=== PATIENT | male | born 1965 | race Two or more races ===

== ENCOUNTER 2018-06-06 19:23 | Emergency (ER) | payer MEDICAID ==
[~2018-06-06] VITALS: Ht 182.9 cm; Wt 82.0 kg
[2018-06-06] MEDS ORDERED: ASPIRIN 81MG TABLET PO ONE (20:45)
[2018-06-06 21:50] LABS: BASOPHILS % 0.7 % (0.0-2.0); EOSINOPHILS % 4.4 % (0.0-5.0); HEMATOCRIT. 41.1 % (42.0-52.0); HEMOGLOBIN. 13.8 g/dL (14.0-18.0); LYMPHOCYTES % 29.6 % (20.0-50.0); MEAN CORPUSCULAR HEMOGLOBIN 31.5 pg (28.0-32.0); MEAN CORPUSCULAR VOLUME 93.9 fL (80.0-94.0); MEAN PLATELET VOLUME 8.8 fl (7.4-10.4); MONOCYTES % 8.9 % (2.0-8.0); NEUTROPHILS % 56.4 % (40.0-76.0); PLATELET 292 x1000/uL (130-400); RED BLOOD CELL COUNT 4.38 mill/uL (4.7-6.1); RED CELL DISTRIBUTION WIDTH 13.6 % (11.6-14.6)
[2018-06-06 21:54] LABS: CHLORIDE 107 mEq/L (98-107)
[2018-06-06 22:03] LABS: D-DIMER 0.38 mg/L FEU (<0.50); PARTIAL THROMBOPLASTIN TIME 29.5 sec (23.4-31.0); PROTHROMBIN TIME 10.1 sec (9.1-11.1)
[2018-06-06 22:29] LABS: CLARITY URINE CLEAR (CLEAR); COLOR URINE YELLOW (YELLOW); KETONES URINE NEGATIVE (NEGATIVE); LEUKOCYTE ESTERASE URINE NEGATIVE (NEGATIVE); NITRITE URINE NEGATIVE (NEGATIVE); OCCULT BLOOD URINE NEGATIVE (NEGATIVE); PROTEIN URINE NEGATIVE (NEGATIVE); SPECIFIC GRAVITY URINE 1.013 (1.005-1.030); UROBILINOGEN URINE 0.2 E.U./dL (0.2-1.0)
[2018-06-06 23:15] VITALS: BP 127/94
== END 2018-06-07 00:04 | disposition left against medical advice (07) ==
LOC: ER 19:23 → CANBEDREQ 06-07 00:17
DX: R06.02 Shortness of breath (principal); I10 Essential (primary) hypertension; F17.200 Nicotine dependence, unspecified, uncomplicated; R11.10 Vomiting, unspecified; Z98.890 Other specified postprocedural states
CPT/HCPCS: 36415; 71045; 83880; 84484; 85379; 93005; 99284